=== PATIENT | female | born 1950 | race American Indian/Alaskan Native ===

== ENCOUNTER 2016-12-05 10:42 | Outpatient (CLI) | payer MEDICARE ==
[2016-12-05] MEDS ORDERED: DULCOLAX PR ONE (12:57)
--- NOTE | 2016-12-05 14:55 | Fluoroscopy Report ---
Defagram: Constipation. The patient was given oral contrast to opacify the small bowel. An opaque tampon was introduced followed by injection of rectal placed. The patient had difficulty retaining the rectal placed. The initial imaging in the lateral view only demonstrated paced in the rectum not reaching the sigmoid portion of the colon. The anal rectal angle was difficult to evaluate. Additional paste was then introduced however the same problem was encountered. During attempts to place the patient in the upright position she expelled the tampon as well as the remaining rectal paste. No images were obtained. The exam was terminated. Impression: The exam was terminated prior to diagnostic evaluation as explained above.
== END 2016-12-05 10:43 | disposition home or self-care (01) ==
LOC: FLUORO 10:42
PROVIDERS: ATTEND Obstetrics & Gynecology Gynecology
DX: K59.00 Constipation, unspecified (principal); R19.8 Other specified symptoms and signs involving the digestive system and abdomen; I10 Essential (primary) hypertension; E11.9 Type 2 diabetes mellitus without complications; E78.5 Hyperlipidemia, unspecified
CPT/HCPCS: 74270; Q9963

== ENCOUNTER 2017-01-20 11:09 | Outpatient (CLI) | payer MEDICARE ==
--- NOTE | 2017-01-20 12:16 | XRay Report ---
ABDOMEN, 2 views: History: Rectocele, constipation. There is no evidence of free air beneath the diaphragms. The gas pattern within the abdomen is unremarkable. There is no evidence of bowel dilatation, significant air-fluid levels, or pathologic calcifications. Organ shadows are unremarkable. IMPRESSION: Unremarkable abdomen.
== END 2017-01-20 11:10 | disposition home or self-care (01) ==
LOC: XRAY 11:09
PROVIDERS: ATTEND Obstetrics & Gynecology Gynecology
DX: N81.6 Rectocele (principal); K59.00 Constipation, unspecified; R91.8 Other nonspecific abnormal finding of lung field; K64.9 Unspecified hemorrhoids; R10.2 Pelvic and perineal pain; E11.9 Type 2 diabetes mellitus without complications; I10 Essential (primary) hypertension; Z90.710 Acquired absence of both cervix and uterus
CPT/HCPCS: 74020

== ENCOUNTER 2017-06-10 08:23 | Outpatient (CLI) | payer MEDICARE ==
[2017-06-10 08:42] LABS: Basophils # (Auto) 0.1 K/mm3 (0.0-0.1); Eosinophils # (Auto) 0.2 K/mm3 (0.0-0.4); Eosinophils % (Auto) 2.3 % (0.0-4.3); Hematocrit 38.5 % (30.3-42.9); Hemoglobin 11.9 gm/dl (10.1-14.3); Lymphocytes # (Auto) 2.3 K/mm3 (1.2-5.4); Lymphocytes % (Auto) 30.1 % (13.4-35.0); Mean Corpuscular HGB Conc 31 % (30-34); Mean Corpuscular Volume 80 fl (79-97); Monocytes # (Auto) 0.6 K/mm3 (0.0-0.8); Monocytes % (Auto) 7.9 % (0.0-7.3); Platelet Count 275 K/mm3 (140-440); Red Cell Distribution Width 14.5 % (13.2-15.2)
[2017-06-10 08:46] LABS: Mean Corpuscular Hemoglobin 25 pg (28-32)
[2017-06-10 08:57] LABS: BUN/Creatinine Ratio 23; Blood Urea Nitrogen 16 mg/dL (7-17); Calcium 9.8 mg/dL (8.4-10.2); Hemolysis Index 4
== END 2017-06-10 08:24 | disposition home or self-care (01) ==
LOC: LAB 08:23
PROVIDERS: ATTEND Surgery Vascular Surgery
DX: I70.213 Atherosclerosis of native arteries of extremities with intermittent claudication, bilateral legs (principal)
CPT/HCPCS: 36415; 80048; 85025